=== PATIENT | female | born 1970 | race Caucasian/White ===

== ENCOUNTER 2022-10-21 19:04 | Inpatient (IN) | payer OTHER ==
[2022-10-21 20:20] VITALS: BMI 28.6
[2022-10-21] MEDS ORDERED: Potassium Chloride 20 MEQ TAB PO SCH (20:45)
[2022-10-21] MEDS ORDERED: clonazePAM 0.5 MG TAB PO SCH (21:00)
[2022-10-21] MEDS: clonazePAM 0.5 MG TAB PO SCH (21:21)
[2022-10-21] MEDS ORDERED: Zolpidem Tartrate 5 MG TAB PO SCH (23:00)
[2022-10-21] MEDS ORDERED: Morphine 4 MG/ML VIAL SLOW IVP SCH (23:00)
[2022-10-21] MEDS ORDERED: Ondansetron PF 4 MG/2 ML Vial IVP SCH (23:00)
[2022-10-22 05:23] LABS: #Basophils 0.1 10x3/uL (0.0-0.2); #Eosinphils 0.1 10x3/uL (0.0-0.5); #Monocytes 0.8 10x3/uL (0.0-1.1); #Neutrophils 3.2 10x3/uL (1.5-8.4); %Eosinophils 2.2 % (0.0-6.0); %Lymphocytes 28.7 % (18.0-47.0); %Monocytes 13.3 % (0.0-10.0); %Neutrophils 53.3 % (40.0-75.0); Hematocrit 32.1 % (34.9-44.5); Hemoglobin 9.8 g/dL (12.0-15.5); Mean Corpuscular HGB CONC 30.5 g/dL (32.0-36.0); Mean Corpuscular Hemoglobin 21.6 pg (27.0-33.0); Mean Corpuscular Volume 70.7 fl (81.6-98.3); Mean Platelet Volume 9.2 fl (7.4-10.4); Platelet Count 532 10x3/uL (150-450); Red Blood Cell (RBC) Count 4.54 10x6/uL (3.90-5.03)
[2022-10-22 05:32] LABS: INR-International Normal Ratio 1.1; PTT 30.3 sec (22.0-33.0); Prothrombin Time 11.5 sec (9.5-12.1)
[2022-10-22 05:35] LABS: ALT (SGPT) 1223 U/L (8-55); AST (SGOT) 1043 U/L (5-34); Albumin 3.1 g/dL (3.5-5.0); Alkaline Phosphatase 662 U/L (40-110); Anion Gap 14 mmol/L (10-20); BUN (Urea Nitrogen) 7 mg/dL (7.0-18.7); Bilirubin, Direct 0.9 mg/dL (0.1-0.3); Bilirubin, Total 1.4 mg/dL (0.2-1.2); Calc. Creatinine Clearance 126 mL/min (70-130); Calcium 8.5 mg/dL (7.8-10.44); Carbon Dioxide 20 mmol/L (22-29); Chloride 104 mmol/L (98-107); Estimated GFR 108; Globulin 3.2 g/dL (2.4-3.5); Glucose 97 mg/dL (70-105); Iron 43 ug/dL (50-170); Iron Binding Capacity, Total 414 mcg/dL (265-497); Potassium 4.1 mmol/L (3.5-5.1); Protein, Total 6.3 g/dL (6.0-8.3); Sodium 134 mmol/L (136-145)
[2022-10-22 05:43] LABS: Anisocytosis MODERATE=16-30 cells (100X) (0-5/hpf); Macrocytosis SLIGHT = 6-15 cells (100X) (0-5/hpf); Microcytosis SLIGHT = 6-15 cells (100X) (0-5/hpf); Ovalocytes SLIGHT = 2-5 cells (100X) (0-1/hpf); Target Cells MODERATE= 6-15 cells (100X) (0-1/hpf)
[2022-10-22 05:44] LABS: Platelet Adequacy Comment Appears Increased
[2022-10-22 05:51] LABS: Ferritin 67.07 ng/mL (10-291); HIV (1/2) Antibody/Antigen Non-Reactive (NonReactive); HIV 1/2 INDEX 0.05 S/CO (<1.00)
[2022-10-22] MEDS ORDERED: Magnevist 469MG/ML 20 ML VIAL ONE (08:43)
[2022-10-22] MEDS ORDERED: LURASIDONE HCL 80 MG PO SCH (09:00)
[2022-10-22] MEDS ORDERED: Morphine 4 MG/ML VIAL SLOW IVP PRN (11:13)
[2022-10-22] MEDS ORDERED: Ondansetron PF 4 MG/2 ML Vial IVP PRN (13:31)
[2022-10-22 15:48] LABS: HBCM Index 0.06 S/CO (0-0.79); HBSAg Index 0.26 S/CO (0-0.99); Hep A IgM AB Non-Reactive S/CO (NonReactive); Hep A IgM S/CO 0.25 S/CO (0-0.79); Hep B Surf Ag Non-Reactive S/CO (NonReactive); Hep C IgG Ab Non-Reactive S/CO (NonReactive); Hep C Index 0.12 S/CO (0-0.79); Hepatitis B Core IgM Abs Non-Reactive S/CO (NonReactive)
[2022-10-22] MEDS ORDERED: diphenhydrAMINE 50 MG/ML VIAL IVP PRN (16:45)
[2022-10-22] MEDS ORDERED: diphenhydrAMINE 25 MG CAP PO PRN (16:45)
[2022-10-22] MEDS ORDERED: Ondansetron ODT 4 MG TAB PO PRN (16:45)
[2022-10-22 17:05] LABS: Acetaminophen Less than 10 mcg/mL (10.0-30.0); Alcohol Less than 10.0 mg/dL (Less than 10); Salicylate Less than 8.0 mg/dL (15.0-30.0)
[2022-10-22] MEDS ORDERED: ACETYLCYSTEINE IV SCH ×3 (17:30→22:30)
[2022-10-22] MEDS ORDERED: DEXTROSE 5% IV SCH ×3 (17:30→22:30)
[2022-10-22] MEDS ORDERED: WATER IV SCH ×3 (17:30→22:30)
[2022-10-22 17:52] LABS: SARS-CoV-2 NAA Rapid Test Not Detected (NotDetected)
[2022-10-22] MEDS: clonazePAM 0.5 MG TAB PO SCH (21:02)
[2022-10-22] MEDS: Promethazine HCl 25 MG in Sodium Chloride 0.9% 50 ML IVPB PRN (21:18)
[2022-10-22] MEDS: oxyCODONE 5 MG TAB PO PRN (22:02)
[2022-10-22 22:28] LABS: Bilirubin Neg (Negative); Blood, Urine Negative (Negative); Clarity Clear (Clear); Glucose, Urine (Dipstick) 50 mg/dL (Negative); Ketone, Urine 150 mg/dL (Negative); Leukocyte Negative (Negative); Nitrite Negative (Negative); Protein, Urine (Dipstick) Negative (Neg-Trace); Specific Gravity, Urine 1.015 (1.005-1.030); pH, Urine 6.5 (5.0-9.0)
[2022-10-22 22:33] LABS: RBC/HPF 0-3 HPF (0-3)
[2022-10-22 22:34] LABS: Bacteria/HPF Rare-Few HPF (None Seen); CAUTI Indications for Culture Dysuria,urgency,freq; WBC/HPF 0-3 HPF (0-3)
[2022-10-22 22:35] LABS: Urine Culture Reflex No No
[2022-10-22 22:37] LABS: Amphetamine Detected (NotDetected); Barbiturates Screen Not Detected (NotDetected); Benzodiazepine Screen Not Detected (NotDetected); Cocaine Metabolite Screen Not Detected (NotDetected); Methadone Not Detected (NotDetected); Methamphetamine Detected (NotDetected); Opiate Screen Detected (NotDetected); Oxycodone Screen Not Detected (NotDetected); Phencyclidine (PCP) Not Detected (NotDetected); THC/Cannabinoid Screen Detected (NotDetected); Tricyclic Screen Not Detected (NotDetected)
[2022-10-23] MEDS ORDERED: ACETYLCYSTEINE IV SCH (02:30)
[2022-10-23] MEDS ORDERED: WATER IV SCH (02:30)
[2022-10-23] MEDS ORDERED: DEXTROSE 5% IV SCH (02:30)
[2022-10-23] MEDS: oxyCODONE 5 MG TAB PO PRN ×3 (04:17→21:06)
[2022-10-23 06:10] LABS: #Basophils 0.1 10x3/uL (0.0-0.2); #Eosinphils 0.1 10x3/uL (0.0-0.5); #Monocytes 1.3 10x3/uL (0.0-1.1); #Neutrophils 4.4 10x3/uL (1.5-8.4); %Basophils 1.5 % (0.0-2.0); %Lymphocytes 26.7 % (18.0-47.0); %Monocytes 16.4 % (0.0-10.0); %Neutrophils 53.9 % (40.0-75.0); Hematocrit 33.6 % (34.9-44.5); Hemoglobin 10.5 g/dL (12.0-15.5); Mean Corpuscular HGB CONC 31.3 g/dL (32.0-36.0); Mean Corpuscular Volume 70.4 fl (81.6-98.3); Mean Platelet Volume 9.3 fl (7.4-10.4); Platelet Count 510 10x3/uL (150-450); RBC Distribution Width 21.8 % (11.5-14.5); Red Blood Cell (RBC) Count 4.77 10x6/uL (3.90-5.03); White Blood Cell (WBC) Count 8.1 10x3/uL (3.5-10.5)
[2022-10-23 06:49] LABS: ALT (SGPT) 1292 U/L (8-55); AST (SGOT) 1012 U/L (5-34); Albumin 3.1 g/dL (3.5-5.0); Alkaline Phosphatase 682 U/L (40-110); Anion Gap 16 mmol/L (10-20); BUN (Urea Nitrogen) 7 mg/dL (7.0-18.7); Bilirubin, Total 1.6 mg/dL (0.2-1.2); Calc. Creatinine Clearance 132 mL/min (70-130); Calcium 8.6 mg/dL (7.8-10.44); Carbon Dioxide 21 mmol/L (22-29); Chloride 100 mmol/L (98-107); Estimated GFR 109; Globulin 3.6 g/dL (2.4-3.5); Glucose 130 mg/dL (70-105); Potassium 3.6 mmol/L (3.5-5.1); Protein, Total 6.7 g/dL (6.0-8.3); Sodium 133 mmol/L (136-145)
[2022-10-23 07:04] LABS: Anisocytosis SLIGHT = 6-15 cells (100X) (0-5/hpf); Macrocytosis SLIGHT = 6-15 cells (100X) (0-5/hpf); Microcytosis SLIGHT = 6-15 cells (100X) (0-5/hpf); Target Cells SLIGHT = 2-5 cells (100X) (0-1/hpf)
[2022-10-23 07:05] LABS: Platelet Adequacy Comment Appears Increased
[2022-10-23 11:47] LABS: ANA Symphony (Qualitative) Negative (Negative); ANA Symphony (Quantitative) 0.5 Ratio (< 0.7 Negative); EliA Vaculitis New Method **** NEW METHOD ****; dsDNA IgG Antibody 3.2 IU/mL (<10 Negative)
[2022-10-23] MEDS: LURASIDONE 80 MG PO SCH (21:05)
[2022-10-23] MEDS: clonazePAM 0.5 MG TAB PO SCH (21:06)
[2022-10-24 05:11] LABS: INR-International Normal Ratio 1.1; PTT 28.8 sec (22.0-33.0); Prothrombin Time 11.6 sec (9.5-12.1)
[2022-10-24 05:13] LABS: #Basophils 0.1 10x3/uL (0.0-0.2); #Eosinphils 0.1 10x3/uL (0.0-0.5); #Monocytes 1.5 10x3/uL (0.0-1.1); #Neutrophils 4.3 10x3/uL (1.5-8.4); %Basophils 1.5 % (0.0-2.0); %Lymphocytes 30.6 % (18.0-47.0); %Monocytes 17.3 % (0.0-10.0); %Neutrophils 49.3 % (40.0-75.0); Hematocrit 35.2 % (34.9-44.5); Hemoglobin 10.8 g/dL (12.0-15.5); Mean Corpuscular HGB CONC 30.7 g/dL (32.0-36.0); Mean Corpuscular Hemoglobin 21.8 pg (27.0-33.0); Mean Corpuscular Volume 71.1 fl (81.6-98.3); Mean Platelet Volume 9.9 fl (7.4-10.4); Platelet Count 453 10x3/uL (150-450); RBC Distribution Width 22.7 % (11.5-14.5); Red Blood Cell (RBC) Count 4.95 10x6/uL (3.90-5.03); White Blood Cell (WBC) Count 8.7 10x3/uL (3.5-10.5)
[2022-10-24 05:16] LABS: ALT (SGPT) 1333 U/L (8-55); Albumin 3.1 g/dL (3.5-5.0); Alkaline Phosphatase 669 U/L (40-110); Anion Gap 16 mmol/L (10-20); BUN (Urea Nitrogen) 9 mg/dL (7.0-18.7); Bilirubin, Total 2.1 mg/dL (0.2-1.2); Calc. Creatinine Clearance 128 mL/min (70-130); Calcium 8.7 mg/dL (7.8-10.44); Carbon Dioxide 20 mmol/L (22-29); Chloride 100 mmol/L (98-107); Estimated GFR 108; Glucose 107 mg/dL (70-105); Potassium 4.3 mmol/L (3.5-5.1); Protein, Total 7.1 g/dL (6.0-8.3); Sodium 132 mmol/L (136-145)
[2022-10-24 05:19] LABS: AST (SGOT) 1134 U/L (5-34); Magnesium 1.8 mg/dL (1.6-2.6)
[2022-10-24] MEDS: oxyCODONE 5 MG TAB PO PRN ×2 (08:22→13:25)
[2022-10-24 09:17] LABS: HSV 1 - DNA Negative (Negative); HSV 2 - DNA Negative (Negative)
[2022-10-24 13:17] LABS: Smooth Muscle Total ABS 103 Units (0-19)
[2022-10-24] MEDS: clonazePAM 0.5 MG TAB PO SCH (20:45)
[2022-10-24] MEDS: LURASIDONE 80 MG PO SCH (20:45)
[2022-10-24] MEDS: Promethazine HCl 25 MG in Sodium Chloride 0.9% 50 ML IVPB PRN (21:24)
[2022-10-25 03:10] LABS: Hematocrit 34.2 % (34.9-44.5); Hemoglobin 10.6 g/dL (12.0-15.5); Mean Corpuscular Hemoglobin 21.7 pg (27.0-33.0); Mean Corpuscular Volume 69.9 fl (81.6-98.3); Platelet Count 517 10x3/uL (150-450); RBC Distribution Width 22.6 % (11.5-14.5); Red Blood Cell (RBC) Count 4.89 10x6/uL (3.90-5.03); White Blood Cell (WBC) Count 8.3 10x3/uL (3.5-10.5)
[2022-10-25 03:17] LABS: INR-International Normal Ratio 1.1; MDiff Complete? YES; PTT 32.4 sec (22.0-33.0); Prothrombin Time 11.8 sec (9.5-12.1)
[2022-10-25 03:48] LABS: ALT (SGPT) 1380 U/L (8-55); AST (SGOT) 1203 U/L (5-34); Albumin 3.1 g/dL (3.5-5.0); Alkaline Phosphatase 676 U/L (40-110); Anion Gap 14 mmol/L (10-20); BUN (Urea Nitrogen) 9 mg/dL (7.0-18.7); Bilirubin, Total 3.2 mg/dL (0.2-1.2); Calc. Creatinine Clearance 117 mL/min (70-130); Calcium 8.4 mg/dL (7.8-10.44); Carbon Dioxide 25 mmol/L (22-29); Chloride 98 mmol/L (98-107); Estimated GFR 106; Globulin 3.7 g/dL (2.4-3.5); Glucose 125 mg/dL (70-105); Magnesium 1.8 mg/dL (1.6-2.6); Potassium 3.6 mmol/L (3.5-5.1); Protein, Total 6.8 g/dL (6.0-8.3); Sodium 133 mmol/L (136-145)
[2022-10-25 04:52] LABS: Platelet Adequacy Comment Appears Increased
[2022-10-25 04:54] LABS: Microcytosis SLIGHT = 6-15 cells (100X) (0-5/hpf)
[2022-10-25 04:55] LABS: Band 1 % (5-11); Eosinophils 2 % (0-10); Lymphocytes 32 % (21-51); Monocytes 21 % (0-10); Neutrophil 44 % (42-75)
[2022-10-25] MEDS ORDERED: Lorazepam 0.5 MG TAB PO PRN (13:25)
[2022-10-25 20:03] LABS: SARS-CoV-2 NAA Rapid Test Not Detected (NotDetected)
[2022-10-25] MEDS: LURASIDONE 80 MG PO SCH (21:07)
[2022-10-25] MEDS: clonazePAM 0.5 MG TAB PO SCH (21:07)
[2022-10-25] MEDS: Promethazine HCl 25 MG in Sodium Chloride 0.9% 50 ML IVPB PRN (21:08)
[2022-10-26 03:28] LABS: Hematocrit 33.1 % (34.9-44.5); Hemoglobin 10.1 g/dL (12.0-15.5); Mean Corpuscular HGB CONC 30.5 g/dL (32.0-36.0); Mean Corpuscular Hemoglobin 21.6 pg (27.0-33.0); Mean Corpuscular Volume 70.7 fl (81.6-98.3); Mean Platelet Volume 10.4 fl (7.4-10.4); Platelet Count 517 10x3/uL (150-450); RBC Distribution Width 23.9 % (11.5-14.5); Red Blood Cell (RBC) Count 4.68 10x6/uL (3.90-5.03); White Blood Cell (WBC) Count 8.5 10x3/uL (3.5-10.5)
[2022-10-26 03:33] LABS: MDiff Complete? YES
[2022-10-26 03:35] LABS: INR-International Normal Ratio 1.1; Prothrombin Time 11.9 sec (9.5-12.1)
[2022-10-26 04:02] LABS: Band 2 % (5-11); Eosinophils 2 % (0-10); Lymphocytes 32 % (21-51); Monocytes 19 % (0-10); Neutrophil 45 % (42-75)
[2022-10-26 04:03] LABS: Microcytosis SLIGHT = 6-15 cells (100X) (0-5/hpf); Platelet Adequacy Comment Appears Increased
[2022-10-26 04:13] LABS: ALT (SGPT) 1380 U/L (8-55); AST (SGOT) 1172 U/L (5-34); Albumin 3.1 g/dL (3.5-5.0); Alkaline Phosphatase 618 U/L (40-110); Anion Gap 14 mmol/L (10-20); BUN (Urea Nitrogen) 8 mg/dL (7.0-18.7); Bilirubin, Total 4.1 mg/dL (0.2-1.2); Calc. Creatinine Clearance 118 mL/min (70-130); Calcium 8.3 mg/dL (7.8-10.44); Carbon Dioxide 24 mmol/L (22-29); Chloride 101 mmol/L (98-107); Estimated GFR 106; Globulin 3.6 g/dL (2.4-3.5); Glucose 116 mg/dL (70-105); Magnesium 1.9 mg/dL (1.6-2.6); Potassium 3.7 mmol/L (3.5-5.1); Protein, Total 6.7 g/dL (6.0-8.3); Sodium 135 mmol/L (136-145)
[2022-10-26] MEDS: oxyCODONE 5 MG TAB PO PRN (20:42)
[2022-10-26] MEDS: LURASIDONE 80 MG PO SCH (20:42)
[2022-10-26] MEDS: clonazePAM 0.5 MG TAB PO SCH (20:42)
[2022-10-26] MEDS: Promethazine HCl 25 MG in Sodium Chloride 0.9% 50 ML IVPB PRN (20:44)
[2022-10-26] MEDS ORDERED: prednisoLONE 15 MG/5 ML UDCUP PO SCH (21:00)
[2022-10-27 03:34] LABS: #Basophils 0.1 10x3/uL (0.0-0.2); #Monocytes 0.3 10x3/uL (0.0-1.1); #Neutrophils 4.1 10x3/uL (1.5-8.4); %Basophils 1.5 % (0.0-2.0); %Lymphocytes 26.5 % (18.0-47.0); %Monocytes 4.9 % (0.0-10.0); %Neutrophils 66.4 % (40.0-75.0); Hematocrit 33.7 % (34.9-44.5); Hemoglobin 10.4 g/dL (12.0-15.5); Mean Corpuscular HGB CONC 30.9 g/dL (32.0-36.0); Mean Corpuscular Hemoglobin 22.1 pg (27.0-33.0); Mean Corpuscular Volume 71.7 fl (81.6-98.3); Mean Platelet Volume 10.4 fl (7.4-10.4); Platelet Count 535 10x3/uL (150-450); White Blood Cell (WBC) Count 6.1 10x3/uL (3.5-10.5)
[2022-10-27 03:45] LABS: INR-International Normal Ratio 1.1; PTT 34.2 sec (22.0-33.0); Prothrombin Time 12.2 sec (9.5-12.1)
[2022-10-27 03:59] LABS: ALT (SGPT) 1478 U/L (8-55); AST (SGOT) 1184 U/L (5-34); Albumin 3.2 g/dL (3.5-5.0); Alkaline Phosphatase 611 U/L (40-110); Anion Gap 14 mmol/L (10-20); BUN (Urea Nitrogen) 9 mg/dL (7.0-18.7); Bilirubin, Total 5.4 mg/dL (0.2-1.2); Calc. Creatinine Clearance 120 mL/min (70-130); Calcium 8.8 mg/dL (7.8-10.44); Carbon Dioxide 23 mmol/L (22-29); Chloride 100 mmol/L (98-107); Estimated GFR 106; Globulin 3.9 g/dL (2.4-3.5); Glucose 165 mg/dL (70-105); Magnesium 2.1 mg/dL (1.6-2.6); Protein, Total 7.1 g/dL (6.0-8.3); Sodium 133 mmol/L (136-145)
[2022-10-27 04:04] LABS: Anisocytosis SLIGHT = 6-15 cells (100X) (0-5/hpf); Macrocytosis SLIGHT = 6-15 cells (100X) (0-5/hpf); Microcytosis SLIGHT = 6-15 cells (100X) (0-5/hpf)
[2022-10-27 04:05] LABS: Platelet Adequacy Comment Appears Increased
[2022-10-27] MEDS: oxyCODONE 5 MG TAB PO PRN (10:26)
[2022-10-27] MEDS: prednisoLONE 15 MG/5 ML UDCUP PO SCH (12:55)
[2022-10-27] MEDS: ALPRAZolam 0.25 MG TAB PO PRN (12:56)
[2022-10-27] MEDS: HYDROcodone/Acetaminophen 5/325 mg Tablet PO PRN ×2 (15:12→21:44)
[2022-10-27] MEDS: Ondansetron PF 4 MG/2 ML Vial IVP PRN (15:12)
[2022-10-27] MEDS: LURASIDONE 80 MG PO SCH (21:39)
[2022-10-27] MEDS: clonazePAM 0.5 MG TAB PO SCH (21:39)
[2022-10-28 04:27] LABS: INR-International Normal Ratio 1.1; PTT 31.6 sec (22.0-33.0); Prothrombin Time 11.9 sec (9.5-12.1)
[2022-10-28 04:32] LABS: ALT (SGPT) 1180 U/L (8-55); AST (SGOT) 681 U/L (5-34); Albumin 2.9 g/dL (3.5-5.0); Alkaline Phosphatase 522 U/L (40-110); Anion Gap 12 mmol/L (10-20); BUN (Urea Nitrogen) 10 mg/dL (7.0-18.7); Bilirubin, Total 4.1 mg/dL (0.2-1.2); Calc. Creatinine Clearance 126 mL/min (70-130); Calcium 8.5 mg/dL (7.8-10.44); Carbon Dioxide 25 mmol/L (22-29); Chloride 100 mmol/L (98-107); Estimated GFR 108; Globulin 3.7 g/dL (2.4-3.5); Glucose 148 mg/dL (70-105); Potassium 4.1 mmol/L (3.5-5.1); Protein, Total 6.6 g/dL (6.0-8.3); Sodium 133 mmol/L (136-145)
[2022-10-28 04:35] LABS: #Basophils 0.1 10x3/uL (0.0-0.2); #Monocytes 1.3 10x3/uL (0.0-1.1); #Neutrophils 7.7 10x3/uL (1.5-8.4); %Basophils 0.8 % (0.0-2.0); %Eosinophils 0.1 % (0.0-6.0); %Lymphocytes 23.5 % (18.0-47.0); %Neutrophils 64.3 % (40.0-75.0); Hemoglobin 9.5 g/dL (12.0-15.5); Mean Corpuscular HGB CONC 30.6 g/dL (32.0-36.0); Mean Corpuscular Hemoglobin 21.9 pg (27.0-33.0); Mean Corpuscular Volume 71.4 fl (81.6-98.3); Mean Platelet Volume 10.9 fl (7.4-10.4); Platelet Count 506 10x3/uL (150-450); RBC Distribution Width 23.8 % (11.5-14.5); Red Blood Cell (RBC) Count 4.34 10x6/uL (3.90-5.03)
[2022-10-28 04:55] LABS: Microcytosis SLIGHT = 6-15 cells (100X) (0-5/hpf); Platelet Adequacy Comment Appears Increased
[2022-10-28 04:56] LABS: Hypochromia SLIGHT = 6-15 cells (100X) (0-5/hpf)
[2022-10-28] MEDS: HYDROcodone/Acetaminophen 5/325 mg Tablet PO PRN ×4 (09:50→22:26)
[2022-10-28] MEDS: Ondansetron PF 4 MG/2 ML Vial IVP PRN ×2 (09:50→15:48)
[2022-10-28] MEDS: prednisoLONE 15 MG/5 ML UDCUP PO SCH (09:59)
[2022-10-28] MEDS: ALPRAZolam 0.25 MG TAB PO PRN ×2 (10:03→16:07)
[2022-10-28] MEDS: LURASIDONE 80 MG PO SCH (22:14)
[2022-10-28] MEDS: clonazePAM 0.5 MG TAB PO SCH (22:17)
[2022-10-28] MEDS: Promethazine 25 MG TAB PO PRN (22:18)
[2022-10-29 03:43] LABS: #Basophils 0.1 10x3/uL (0.0-0.2); #Monocytes 1.3 10x3/uL (0.0-1.1); #Neutrophils 7.4 10x3/uL (1.5-8.4); %Basophils 0.8 % (0.0-2.0); %Eosinophils 0.2 % (0.0-6.0); %Lymphocytes 27.4 % (18.0-47.0); %Monocytes 10.3 % (0.0-10.0); %Neutrophils 60.8 % (40.0-75.0); Hematocrit 29.4 % (34.9-44.5); Mean Corpuscular HGB CONC 30.6 g/dL (32.0-36.0); Mean Corpuscular Hemoglobin 21.7 pg (27.0-33.0); Mean Platelet Volume 10.4 fl (7.4-10.4); Platelet Count 552 10x3/uL (150-450); RBC Distribution Width 24.5 % (11.5-14.5); Red Blood Cell (RBC) Count 4.14 10x6/uL (3.90-5.03); White Blood Cell (WBC) Count 12.2 10x3/uL (3.5-10.5)
[2022-10-29 03:52] LABS: ALT (SGPT) 1104 U/L (8-55); AST (SGOT) 676 U/L (5-34); Albumin 2.7 g/dL (3.5-5.0); Alkaline Phosphatase 465 U/L (40-110); Anion Gap 11 mmol/L (10-20); BUN (Urea Nitrogen) 11 mg/dL (7.0-18.7); Bilirubin, Total 4.3 mg/dL (0.2-1.2); Calc. Creatinine Clearance 128 mL/min (70-130); Calcium 8.2 mg/dL (7.8-10.44); Carbon Dioxide 28 mmol/L (22-29); Chloride 99 mmol/L (98-107); Estimated GFR 108; Globulin 3.4 g/dL (2.4-3.5); Glucose 141 mg/dL (70-105); Potassium 3.4 mmol/L (3.5-5.1); Protein, Total 6.1 g/dL (6.0-8.3); Sodium 135 mmol/L (136-145)
[2022-10-29] MEDS: prednisoLONE 15 MG/5 ML UDCUP PO SCH (09:15)
[2022-10-29] MEDS: ALPRAZolam 0.25 MG TAB PO PRN (09:52)
[2022-10-29] MEDS ORDERED: Potassium Chloride 20 MEQ in Premix Bag 1 BAG IVPB SCH (10:00)
[2022-10-29] MEDS ORDERED: Sodium Bicarbonate 2.5 MEQ/5 ML VIAL ONE (10:13)
[2022-10-29] MEDS ORDERED: Lidocaine 1% PF 5 ML VIAL ONE (10:13)
[2022-10-29] MEDS ORDERED: Midazolam HCl 5 mg/5 ml Vial ONE (11:53)
[2022-10-29] MEDS ORDERED: Fentanyl 100 MCG/2 ML VIAL ONE (11:53)
[2022-10-29] MEDS: HYDROcodone/Acetaminophen 5/325 mg Tablet PO PRN ×2 (13:56→20:25)
[2022-10-29] MEDS ORDERED: Potassium Chloride 20 MEQ TAB PO SCH (16:00)
[2022-10-29] MEDS: clonazePAM 0.5 MG TAB PO SCH (20:26)
[2022-10-29] MEDS: Promethazine 25 MG TAB PO PRN (20:26)
[2022-10-29] MEDS: LURASIDONE 80 MG PO SCH (20:26)
[2022-10-30 08:13] LABS: ALT (SGPT) 1141 U/L (8-55); AST (SGOT) 721 U/L (5-34); Albumin 2.6 g/dL (3.5-5.0); Alkaline Phosphatase 501 U/L (40-110); Anion Gap 12 mmol/L (10-20); BUN (Urea Nitrogen) 14 mg/dL (7.0-18.7); Bilirubin, Total 5.1 mg/dL (0.2-1.2); Calc. Creatinine Clearance 122 mL/min (70-130); Carbon Dioxide 24 mmol/L (22-29); Chloride 102 mmol/L (98-107); Estimated GFR 107; Globulin 3.4 g/dL (2.4-3.5); Glucose 106 mg/dL (70-105); Potassium 3.6 mmol/L (3.5-5.1); Sodium 134 mmol/L (136-145)
[2022-10-30 08:19] LABS: #Basophils 0.1 10x3/uL (0.0-0.2); #Eosinphils 0.1 10x3/uL (0.0-0.5); #Monocytes 1.2 10x3/uL (0.0-1.1); %Basophils 0.8 % (0.0-2.0); %Eosinophils 1.1 % (0.0-6.0); %Lymphocytes 31.8 % (18.0-47.0); %Monocytes 10.8 % (0.0-10.0); Hematocrit 29.7 % (34.9-44.5); Hemoglobin 9.3 g/dL (12.0-15.5); Mean Corpuscular HGB CONC 31.3 g/dL (32.0-36.0); Mean Corpuscular Hemoglobin 22.5 pg (27.0-33.0); Mean Corpuscular Volume 71.9 fl (81.6-98.3); Mean Platelet Volume 10.2 fl (7.4-10.4); Platelet Count 577 10x3/uL (150-450); RBC Distribution Width 25.2 % (11.5-14.5); Red Blood Cell (RBC) Count 4.13 10x6/uL (3.90-5.03)
[2022-10-30] MEDS: prednisoLONE 15 MG/5 ML UDCUP PO SCH (08:58)
[2022-10-30] MEDS: ALPRAZolam 0.25 MG TAB PO PRN (09:07)
[2022-10-30] MEDS: HYDROcodone/Acetaminophen 5/325 mg Tablet PO PRN (20:31)
[2022-10-30] MEDS: clonazePAM 0.5 MG TAB PO SCH (20:32)
[2022-10-30] MEDS: Promethazine 25 MG TAB PO PRN (20:32)
[2022-10-30] MEDS: LURASIDONE 80 MG PO SCH (20:32)
[2022-10-31 03:07] LABS: INR-International Normal Ratio 1.1; Prothrombin Time 12.3 sec (9.5-12.1)
[2022-10-31 03:12] LABS: Anion Gap 14 mmol/L (10-20); BUN (Urea Nitrogen) 7 mg/dL (7.0-18.7); Calc. Creatinine Clearance 144 mL/min (70-130); Calcium 8.1 mg/dL (7.8-10.44); Carbon Dioxide 23 mmol/L (22-29); Chloride 102 mmol/L (98-107); Estimated GFR 111; Glucose 149 mg/dL (70-105); Potassium 3.5 mmol/L (3.5-5.1); Sodium 135 mmol/L (136-145)
[2022-10-31 03:33] LABS: ALT (SGPT) 1053 U/L (8-55); AST (SGOT) 510 U/L (5-34); Albumin 2.7 g/dL (3.5-5.0); Alkaline Phosphatase 490 U/L (40-110); Bilirubin, Total 4.8 mg/dL (0.2-1.2); Globulin 3.3 g/dL (2.4-3.5)
[2022-10-31 04:37] LABS: #Basophils 0.1 10x3/uL (0.0-0.2); #Eosinphils 0.1 10x3/uL (0.0-0.5); #Monocytes 1.1 10x3/uL (0.0-1.1); #Neutrophils 7.2 10x3/uL (1.5-8.4); %Basophils 0.6 % (0.0-2.0); %Eosinophils 0.6 % (0.0-6.0); %Lymphocytes 27.1 % (18.0-47.0); %Monocytes 9.4 % (0.0-10.0); %Neutrophils 61.9 % (40.0-75.0); Hematocrit 29.5 % (34.9-44.5); Hemoglobin 9.2 g/dL (12.0-15.5); Mean Corpuscular HGB CONC 31.2 g/dL (32.0-36.0); Mean Corpuscular Hemoglobin 22.2 pg (27.0-33.0); Mean Corpuscular Volume 71.3 fl (81.6-98.3); Mean Platelet Volume 10.4 fl (7.4-10.4); Platelet Count 607 10x3/uL (150-450); RBC Distribution Width 26.2 % (11.5-14.5); Red Blood Cell (RBC) Count 4.14 10x6/uL (3.90-5.03); White Blood Cell (WBC) Count 11.6 10x3/uL (3.5-10.5)
[2022-10-31] MEDS: prednisoLONE 15 MG/5 ML UDCUP PO SCH (09:22)
[2022-10-31] MEDS: ALPRAZolam 0.25 MG TAB PO PRN (09:27)
[2022-10-31 12:23] VITALS: BP 133/63; TEMP 98.5
== END 2022-10-31 16:56 | disposition home or self-care (01) | DRG 442 ==
LOC: CSHTELE 19:04
PROVIDERS: ADMIT Family Medicine; ATTEND Internal Medicine
PROC: 0FB23ZX Excision of Left Lobe Liver, Percutaneous Approach, Diagnostic (ICD-10-PCS; principal; 2022-10-29)
DX: K75.4 Autoimmune hepatitis (principal); E87.1 Hypo-osmolality and hyponatremia; R59.1 Generalized enlarged lymph nodes; F31.9 Bipolar disorder, unspecified; F41.9 Anxiety disorder, unspecified; N63.10 Unspecified lump in the right breast, unspecified quadrant; D50.9 Iron deficiency anemia, unspecified; E87.6 Hypokalemia; R30.0 Dysuria; F10.10 Alcohol abuse, uncomplicated; Z20.822 Contact with and (suspected) exposure to COVID-19; F15.10 Other stimulant abuse, uncomplicated; F12.10 Cannabis abuse, uncomplicated; R74.01 Elevation of levels of liver transaminase levels; E88.09 Other disorders of plasma-protein metabolism, not elsewhere classified; Z88.0 Allergy status to penicillin; Z91.041 Radiographic dye allergy status; Z82.49 Family history of ischemic heart disease and other diseases of the circulatory system; K74.3 Primary biliary cirrhosis
CPT/HCPCS: 36415; 47000; 74183; 76942; 80053; 80074; 80306; 80307; 81001; 82247; 82390; 82728; 83516; 83540; 83550; 83735; 85025; 85610; 85730; 86015; 86038; 86225; 86644; 87389; 87529; 87798; 88307; 93005; 93010; 99152; 99153; A9579; J0132; J1200; J1650; J2250; J2270; J2405; J2550; J3010; J3480; J7070; J7510; Q0162; Q0169; U0002